=== PATIENT | male | born 1990 | race Caucasian/White ===

== ENCOUNTER 2017-03-08 19:42 | Emergency (ER) | payer OTHER ==
[2017-03-08 19:55] VITALS: RESP 16
[2017-03-08] MEDS ORDERED: DIPH,PERTUS(ACELL)TETVAC-LF 0.5 ML VIAL IM ONE (20:10)
--- NOTE | 2017-03-08 20:21 | ED ---
Wound/Laceration HPI - General Chief Complaint: Wound/Laceration Stated Complaint: L hand laceration Time Seen by Provider: 03/08/17 19:59 Source: patient, RN notes reviewed Mode of arrival: ambulatory Limitations: no limitations - History of Present Illness Initial Comments: Patient is a 27-year-old male presents to the emergency room for evaluation of left second digit laceration. Patient states he is trying to cut a zip tie with a knife and accidentally sliced the tip of his left pointer finger. Patient denies any numbness or tingling in his finger. Patient states he is not up-to-date with his tetanus vaccine. Patient denies taking blood thinners. Patient denies any other injuries during incident. - Related Data Home Medications Medication Instructions Recorded Confirmed No Known Home Medications [No 03/08/17 03/08/17 Known Home Medications] Allergies Allergy/AdvReac Type Severity Reaction Status Date / Time No Known Allergies Allergy Verified 03/08/17 20:14 Review of Systems ROS Statement: Those systems with pertinent positive or pertinent negative responses have been documented in the HPI. ROS Other: All systems not noted in ROS Statement are negative. Past Medical History Past Medical History: No Reported History History of Any Multi-Drug Resistant Organisms: None Reported Past Surgical History: No Surgical Hx Reported Past Psychological History: No Psychological Hx Reported Smoking Status: Former smoker Past Alcohol Use History: Occasional Past Drug Use History: None Reported General Exam - General Exam Comments Initial Comments: Sitting in exam room, no acute distress. Limitations: no limitations General appearance: alert, in no apparent distress Head exam: Present: atraumatic, normocephalic, normal inspection Eye exam: Present: normal appearance ENT exam: Present: normal exam Neck exam: Present: normal inspection Respiratory exam: Absent: respiratory distress Left Hand Wrist exam: Present: laceration (1 cm laceration on the tip of the distal phalanx of the second digit.) Neuro motor exam: Present: wrist extension intact, thumb opposition intact, thumb IP flexion intact, thumb adduction intact, fingers 2-5 abduction intact Vascular: Present: normal capillary refill (Capillary refill less than 2 seconds ), radial pulse (2+), ulnar pulse (2+) Back exam: Present: normal inspection Neurological exam: Present: alert, oriented X3, CN II-XII intact, normal gait Psychiatric exam: Present: normal affect, normal mood Skin exam: Present: warm, dry. Absent: rash Course Vital Signs 03/08/17 19:51 Temperature 97.8 F Pulse Rate 83 Respiratory 16 Rate Blood Pressure 139/81 O2 Sat by Pulse 97 Oximetry Procedures - Laceration Laceration #1 Consent Obtained: verbal consent Indication: laceration Site: other (left second digit) Size (cm): 1 Description: linear Depth: simple, single layer Anesthetic Used: lidocaine 1% Anesthesia Technique: nerve block (digital) Amount (mls): 6 Pre-repair: wound explored, irrigated extensively Type of Sutures: nylon Size of Sutures: 6-0 Number of Sutures: 4 Technique: simple, interrupted Patient Tolerated Procedure: well, no complications Medical Decision Making - Medical Decision Making Patient is a 27-year-old male presents to te emergency room for evaluation of finger laceration. Laceration repaired with sutures. Patient updated on his tetanus vaccine. Return parameters discussed. Disposition Clinical Impression: Finger laceration Disposition: HOME SELF-CARE Condition: Good Instructions: Care For Your Stitches (ED), Finger Laceration (ED) Additional Instructions: Do not soak suture area in water. Clean suture area with a damp cloth. Please return in 7-10 days for suture removal. Take Tylenol or Motrin as needed for discomfort. If any new symptom arises or symptoms worsen, return to ER as soon as possible. Referrals: Dillon Spangler DO [Primary Care Provider] - 1-2 days Time of Disposition: 21:27
[2017-03-08 21:38] VITALS: BP 127/84; PULSE 65; TEMP 98.4
== END 2017-03-08 21:39 | disposition home or self-care (01) ==
LOC: EC 19:42
DX: S61.211A Laceration without foreign body of left index finger without damage to nail, initial encounter (principal); Z87.891 Personal history of nicotine dependence; Z23 Encounter for immunization; W26.0XXA Contact with knife, initial encounter; Y92.009 Unspecified place in unspecified non-institutional (private) residence as the place of occurrence of the external cause; Y93.89 Activity, other specified
CPT/HCPCS: 12001; 90471; 90715; 99282